=== PATIENT | male | born 1995 | race Caucasian/White ===

== ENCOUNTER 2022-01-26 11:09 | Emergency (ER) | payer OTHER ==
[2022-01-26] MEDS ORDERED: BACLOFEN 10MG T10 MG PO (14:23)
[2022-01-26] MEDS ORDERED: NAPROXEN500 MG PO (14:23)
== END 2022-01-26 14:41 | disposition home or self-care (01) ==
LOC: FER 11:09
DX: M54.50 Low back pain, unspecified (principal); M54.2 Cervicalgia; Z28.310 Unvaccinated for COVID-19; Z88.0 Allergy status to penicillin; W11.XXXA Fall on and from ladder, initial encounter; Y92.89 Other specified places as the place of occurrence of the external cause; Y99.0 Civilian activity done for income or pay
CPT/HCPCS: 70450; 72125; 72131; 96372; J1100; J1885